=== PATIENT | female | born 1990 | race Caucasian/White ===

== ENCOUNTER 2018-12-12 17:11 | Emergency (ER) | payer OTHER ==
[2018-12-12 17:29] VITALS: BP 120/67; PULSE 98; TEMP 98.6; BMI 22.3
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
== END 2018-12-12 18:15 | disposition home or self-care (01) ==
LOC: JERFT 17:11
DX: M54.5 Low back pain (principal); V49.49XA Driver injured in collision with other motor vehicles in traffic accident, initial encounter; Y92.488 Other paved roadways as the place of occurrence of the external cause; Y93.89 Activity, other specified; Y99.8 Other external cause status
CPT/HCPCS: 99281-25

== ENCOUNTER 2023-01-15 23:49 | Emergency (ER) | payer OTHER ==
[2023-01-16 00:07] VITALS: BP 130/78; PULSE 98; RESP 20; TEMP 98.6; BMI 26.5
[2023-01-16] MEDS ORDERED: NAPHAZOLINE/PHENIRAMINE OPHTHALMIC 15 ML BOTTLE OD PRN (00:41)
== END 2023-01-16 00:54 | disposition home or self-care (01) ==
LOC: JER 23:49
DX: H11.423 Conjunctival edema, bilateral (principal)
CPT/HCPCS: 99283-25

== ENCOUNTER 2023-09-23 08:58 | Emergency (ER) | payer OTHER ==
[2023-09-23 09:03] VITALS: BP 111/75; RESP 18; TEMP 98.4; BMI 27.4
[2023-09-23 09:21] VITALS: PULSE 95
== END 2023-09-23 10:31 | disposition home or self-care (01) ==
LOC: JERFT 08:58
PROC: 2W3QX1Z Immobilization of Right Lower Leg using Splint (ICD-10-PCS; principal; 2023-09-23)
DX: S92.341A Displaced fracture of fourth metatarsal bone, right foot, initial encounter for closed fracture (principal); W10.8XXA Fall (on) (from) other stairs and steps, initial encounter; Y92.009 Unspecified place in unspecified non-institutional (private) residence as the place of occurrence of the external cause
CPT/HCPCS: 73630-TC-RT-FY; 99283-25